=== PATIENT | male | born 1970 | race Caucasian/White ===

== ENCOUNTER 2025-04-02 11:47 | Emergency (ER) | payer SELFPAY ==
[2025-04-02 11:52] VITALS: BP 122/76; PULSE 76; TEMP 37; O2SAT 96; BMI 30.8
[2025-04-02] MEDS: ADACEL DIPH,PERTUSS(ACELL),TET VAC/PF 0.5 ML ADULT SYRINGE IM (12:24)
--- NOTE | 2025-04-02 13:47 | ED.WOUNDLAC1 ---
HPI - Wound/Laceration General Chief Complaint: Wound/Laceration Stated Complaint: RT HAND INJURY Time Seen by Provider: 04/02/25 11:53 Source: patient Mode of arrival: walk-in Limitations: no limitations History of Present Illness HPI narrative: The patient is coming to the ER almost 10 days after he had a laceration to the right hand, he mentioned that this happened at work after he had the laceration by the edge of the curtain at work The patient mentioned at that time they applied glue to it , but he remove the glue yesterday and he noted the redness in the area The patient last tetanus booster was 10 years ago Related Data Home Medications ?Medication ?Instructions ?Recorded ?Confirmed lisinopril 20 mg tablet 20 mg PO DAILY 04/02/25 04/02/25 Previous Rx's ?Medication ?Instructions ?Recorded amoxicillin 875 mg-potassium 1 tab PO BID #14 tabs 04/02/25 clavulanate 125 mg tablet Allergies Allergy/AdvReac Type Severity Reaction Status Date / Time No Known Drug Allergies Allergy Verified 04/02/25 11:51 Review of Systems ROS Status of ROS 10 or more systems reviewed and unremarkable except as noted in history and below PFSH PFSH Social History Little interest or pleasure in doing things: not at all Feeling down, depressed, or hopeless: not at all Exam Narrative Exam Narrative: Nurses notes and vital signs reviewed and patient is not hypoxic. General: Well-appearing and in no apparent distress. Skin: Warm, dry, no pallor noted. No rash. Right hand examination: The patient had a laceration that is healing to the dorsum of the right hand mostly toward the fifth metacarpal. Laceration is linear and it is not well-approximated but healing, there is a area of redness around most 1 cm that is red and dry but is not taut and is not tender No vascular injury detected Constitutional Vital Signs, click to edit/add: Last Vital Signs Temp 98.6 F 04/02/25 11:52 Pulse 76 04/02/25 11:52 Resp 16 04/02/25 11:52 BP 122/76 04/02/25 11:52 Pulse Ox 96 04/02/25 11:52 O2 Del Method Room Air 04/02/25 11:52 Course Vital Signs Vital signs: Vital Signs Temperature 98.6 F 04/02/25 11:52 Pulse Rate 76 04/02/25 11:52 Respiratory Rate 16 04/02/25 11:52 Blood Pressure 122/76 04/02/25 11:52 Pulse Oximetry 96 04/02/25 11:52 Oxygen Delivery Method Room Air 04/02/25 11:52 Temperature 98.6 F 04/02/25 11:52 Pulse Rate 76 04/02/25 11:52 Respiratory Rate 16 04/02/25 11:52 Blood Pressure 122/76 04/02/25 11:52 Pulse Oximetry 96 04/02/25 11:52 Oxygen Delivery Method Room Air 04/02/25 11:52 MDM - Wound/Laceration MDM Narrative Medical decision making narrative: The patient redness in the dorsum of the right hand around the wound it could be secondary to infection and also could be secondary to the side effect of the glue that was applied to the skin specially that the patient mentioned that it was applied to a wide area around the wound The wound was not approximated well and is healing without closure, right now it is healing well but the patient could be developing cellulitis and he was covered with Augmentin Patient had the area marked and instructed about coming back in case of any worsening of the redness He also had a tetanus booster provided in the ER The patient is to follow up with primary care physician in next 2-3 days or to return to the emergency department should any of the signs or symptoms worsen or new symptoms develop. The patient agrees with the following Diagnosis and Treatment plan and the patient will be discharged home. Discharge Plan Discharge Chief Complaint: Wound/Laceration Clinical Impression: Cellulitis of hand Patient Disposition: Home, Self-Care Time of Disposition Decision: 12:19 Condition: Good Prescriptions / Home Meds: New amoxicillin-pot clavulanate 875-125 mg tablet 1 tab PO BID Qty: 14 0RF No Action lisinopril 20 mg tablet 20 mg PO DAILY Print Language: Italian Instructions: Cellulitis (ED) Discharge Date/Time: 04/02/25 12:47
== END 2025-04-02 12:47 | disposition home or self-care (01) ==
PROVIDERS: Emergency Provider Emergency Medicine; PCP Nurse Practitioner Family
DX: L03.113 Cellulitis of right upper limb (principal); Z23 Encounter for immunization; S61.411A Laceration without foreign body of right hand, initial encounter
CPT/HCPCS: 90471; 90715; 99284